=== PATIENT | female | born 1990 | race African-American/Black ===

== ENCOUNTER 2017-08-29 20:52 | Emergency (ER) | payer MEDICAID ==
[~2017-08-29] VITALS: Ht 167.6 cm; Wt 71.1 kg
[~2017-08-29 20:52] MED LIST: METR-1 PO
[2017-08-29 20:55] VITALS: BP_SYST 118; BP_SYST 148; BP_DIAS 61; PULSE 80; RESP 20; TEMP 98.9; O2SAT 99
--- NOTE | 2017-08-29 21:27 | PD ---
HPI . Foreign body in right ear Chief Complaint: ENT Complaint Time Seen by Provider: 21:16 Travel History International Travel<30 days: No Contact w/Intl Traveler<30days: No Traveled to known affect area: No History of Present Illness HPI 27-year-old female presents to the emergency department for evaluation of a foreign body in her right ear. Patient was using a Q-tip in her right ear when the cotton portion broke off and is retained in the right ear canal. Patient denies any major medical history. Patient states she does not take any daily medication. She is not allergic to anything. She is not currently having pain and there is no other physiological complaint except for the foreign body in the right ear. PFSH Past Medical History Diminished Hearing: No ?: Not LMP: 08 22 17 : 1 Para: 1 Social History Alcohol Use: No Tobacco Use: No Substance Use: No Allergies-Medications (Allergen,Severity, Reaction): Coded Allergies: No Known Allergies (Verified , 08/29/17) Reported Meds & Prescriptions Reported Meds & Active Scripts Active No Active Prescriptions or Reported Medications Review of Systems Except as stated in HPI: all other systems reviewed are Neg Physical Exam Narrative GENERAL: Well-nourished, well-developed 27-year-old female patient in no acute distress. SKIN: Focused skin assessment warm/dry. HEAD: Normocephalic. Atraumatic. EARS: Bilateral pinnae and external canals appear within normal limits. Bilateral tympanic membranes without erythema, dullness or perforation. White foreign body noted in right ear canal and removed with alligator forceps. EYES: No scleral icterus. No injection or drainage. NECK: Supple, trachea midline. No JVD or lymphadenopathy. CARDIOVASCULAR: Regular rate and rhythm without murmurs, gallops, or rubs. RESPIRATORY: Breath sounds equal bilaterally. No accessory muscle use. GASTROINTESTINAL: Normal to inspection. MUSCULOSKELETAL: No cyanosis, or edema. BACK: Nontender without obvious deformity. No CVA tenderness. Data Data Last Documented VS Vital Signs Date Time Temp Pulse Resp B/P (MAP) Pulse Ox O2 Delivery O2 Flow Rate FiO2 08/29/17 20:55 98.9 80 20 118/61 (80) 99 Orders Orders Ed Discharge Order (08/29/17 21:27) MDM Medical Decision Making Medical Screen Exam Complete: Yes Emergency Medical Condition: Yes Differential Diagnosis Differential diagnoses include but not limited to foreign body, tympanic perforation, ear pain Narrative Course 27-year-old female presents emergency department for evaluation of foreign body in her right ear. Patient was using a Q-tip in her ear when it broke off. There was a white foreign body noted to the right ear canal and it was removed using alligator forceps. Patient will be discharged home with instructions to keep the area clean and not to put any other foreign bodies in her ear. Diagnosis Primary Impression: Foreign body in ear Qualified Codes: T16.1XXA - Foreign body in right ear, initial encounter Referrals: Primary Care Physician Patient Instructions: Ear Foreign Body (GEN), General Instructions Additional Instructions: Follow up with primary care physician. Do not put any foreign objects into your ear. Treatment in the emergency Department with any emergent conditions. Scripts No Active Prescriptions or Reported Meds Disposition: 01 DISCHARGE HOME Condition: Stable Miley Sweeney Aug 29, 2017 21:27
== END 2017-08-29 21:46 | disposition home or self-care (01) ==
LOC: PHED 20:52 → PHEFT 21:46
DX: T16.1XXA Foreign body in right ear, initial encounter (principal)
CPT/HCPCS: 99282